=== PATIENT | female | born 1980 | race Caucasian/White ===

== ENCOUNTER 2018-01-23 10:09 | Outpatient (CLI) | payer OTHER | END 2018-01-23 11:11 | disposition home or self-care (01) | LOC: NST 10:09 | DX: Z34.83 Encounter for supervision of other normal pregnancy, third trimester (principal) ==

== ENCOUNTER 2018-01-26 10:49 | Outpatient (CLI) | payer OTHER ==
[2018-01-26] MEDS ORDERED: PRENATAL FORMU1 EAC1 PO (15:51)
== END 2018-01-26 12:07 | disposition still patient (30) ==
LOC: NST 10:49
DX: Z34.83 Encounter for supervision of other normal pregnancy, third trimester (principal)

== ENCOUNTER 2018-01-26 11:57 | Inpatient (IN) | payer OTHER ==
[2018-01-26] MEDS ORDERED: PRENATAL FORMU1 EAC1 PO (15:51)
== END 2018-01-30 12:45 | DRG 788 ==
LOC: LDR 11:57 → O/R 13:57 → OB/GYN 16:06
PROVIDERS: Obstetrics & Gynecology
PROC: 4A1HXCZ Monitoring of Products of Conception, Cardiac Rate, External Approach (ICD-10-PCS; 2018-01-26)
PROC: 10D00Z1 Extraction of Products of Conception, Low, Open Approach (ICD-10-PCS; principal; 2018-01-26 15:15)
DX: O60.14X0 Preterm labor third trimester with preterm delivery third trimester, not applicable or unspecified (principal); Z3A.36 36 weeks gestation of pregnancy; Z37.0 Single live birth

== ENCOUNTER 2018-01-31 10:35 | Emergency (ER) | payer OTHER ==
[~2018-01-31] VITALS: Ht 162.6 cm; Wt 71.7 kg
[~2018-01-31 10:35] MED LIST: PRENATAL FORMU1 EAC1 PO
== END 2018-01-31 14:48 | disposition home or self-care (01) ==
LOC: ER 10:35
DX: S16.1XXA Strain of muscle, fascia and tendon at neck level, initial encounter (principal); X50.9XXA Other and unspecified overexertion or strenuous movements or postures, initial encounter; Y93.89 Activity, other specified; Y92.89 Other specified places as the place of occurrence of the external cause; Y99.8 Other external cause status

== ENCOUNTER 2018-09-01 08:38 | Outpatient (CLI) | payer OTHER | END 2018-09-01 08:42 | disposition home or self-care (01) | LOC: TOM 08:38 | DX: K43.2 Incisional hernia without obstruction or gangrene (principal) ==

== ENCOUNTER 2021-12-25 22:19 | Inpatient (IN) | payer OTHER ==
[~2021-12-25] VITALS: Ht 167.6 cm; Wt 90.7 kg
--- NOTE | 2021-12-25 23:09 | NUR ---
PTE ALERTA Y ORIENTADA X 3 ESFERAS EN AMBULANCIA QUIEN REFIERE INFECCION DE URINA POR LA CUAL SE ENCUENTRA EN TX MEDICO DEIDRE COMENZO CON DOLOR PELVICO Y VOMITOS HACE 2 MANZANO.PTE CANALIZADA EN MANO RT CON .9NSS PATENTE Y YE DE EDEMA.
--- NOTE | 2021-12-26 01:40 | NUR ---
PACIENTE ALERTA Y ORIENTADA X3. SE ORIENTA SOBRE TX Y PROCEDIMIENTO A REALIZAR Y REFIRIO ENTENDER. SE ADMINISTRA MEDICAMENTOS ORDENADOS POR MD. SE REALIZA MUESTRAS DE LABORATORIO BAJO MEDIDAS ASEPTICAS. CANALIZACION PATENTE Y YE DE EDEMA Y ERITEMA. LE REALIZARON PLACA ORDENADA POR .
--- NOTE | 2021-12-26 07:18 | NUR ---
SE RECIBE PTE EN EL AREA DE OBSERVACION EN EL CUBICULO #9 EN BE CON BARANDAS ELEVADA Y TIBRE ACCESIBLE, PTE ALERTA Y CONCIENTE POR 3 NO PRESENTA DOLOR AL MOMENTO, SE OBSERVA VENOPUNCION PATENTE Y YE DE EDEMA, PTE SE MANTIENE EN OBSERVACION Y BAJO TRATAMIENTO EN ESPERA DEL DR PATEL
[2021-12-29] MEDS ORDERED: CEFDINIR300 MG PO (14:01)
[2021-12-29] MEDS ORDERED: INTESTINEX680 M1 PO (14:01)
[2021-12-29] MEDS ORDERED: PANTOPRAZOLE SO40 MG PO (14:01)
== END 2021-12-29 15:15 | disposition home or self-care (01) | DRG 690 ==
LOC: ER 22:19 → SEC-K 12-26 12:22 → SURG 12-27 16:26
PROVIDERS: ADMIT Internal Medicine; ATTEND Internal Medicine
PROC: BW21ZZZ Computerized Tomography (CT Scan) of Abdomen and Pelvis (ICD-10-PCS; principal; 2021-12-26)
DX: N39.0 Urinary tract infection, site not specified (principal); N12 Tubulo-interstitial nephritis, not specified as acute or chronic; D56.9 Thalassemia, unspecified; Z20.822 Contact with and (suspected) exposure to COVID-19

== ENCOUNTER 2022-05-07 12:05 | Outpatient (CLI) | payer OTHER ==
[~2022-05-07 12:05] MED LIST changes: +CEFDINIR300 MG PO; +INTESTINEX680 M1 PO; +PANTOPRAZOLE SO40 MG PO
== END 2022-05-07 12:30 | disposition home or self-care (01) ==
LOC: MAMO-SONO 12:05
PROVIDERS: ATTEND Obstetrics & Gynecology
DX: N60.11 Diffuse cystic mastopathy of right breast (principal)

== ENCOUNTER → 2022-07-01 | Outpatient (CLI) | payer OTHER | END | disposition home or self-care (01) | LOC: SONOGRAMA 09:56 | PROVIDERS: ATTEND Urology | DX: N39.0 Urinary tract infection, site not specified (principal) ==

== ENCOUNTER 2023-06-26 08:59 | Outpatient (CLI) | payer OTHER | END 2023-06-26 16:19 | disposition home or self-care (01) | LOC: TOM 08:59 | PROVIDERS: ATTEND Internal Medicine Endocrinology, Diabetes & Metabolism | DX: G44.309 Post-traumatic headache, unspecified, not intractable (principal) ==

== ENCOUNTER 2024-09-29 06:55 | Outpatient (CLI) | payer OTHER | END 2024-09-30 08:17 | disposition home or self-care (01) | LOC: MAMO-SONO 06:55 | PROVIDERS: ATTEND Obstetrics & Gynecology | DX: N60.11 Diffuse cystic mastopathy of right breast (principal); Z12.31 Encounter for screening mammogram for malignant neoplasm of breast ==